=== PATIENT | female | born 1975 | race Caucasian/White ===

== ENCOUNTER 2019-04-05 09:11 | Emergency (ER) | payer OTHER ==
[2019-04-05] MEDS ORDERED: KETOROLAC 30 MG/ML INJ ONE (09:54)
--- NOTE | 2019-04-05 10:15 | RAD REPORT ---
EXAM DESCRIPTION: CT - Head Brain Wo Cont - 04/05/2019 10:03 am CLINICAL HISTORY: Headache, right ear region pain COMPARISON: None. TECHNIQUE: Axial 5 mm thick images of the head were obtained without IV contrast. All CT scans are performed using dose optimization technique as appropriate and may include automated exposure control or mA/KV adjustment according to patient size. FINDINGS: No intracranial hemorrhage, mass, edema or shift of mid-line structures. No acute infarcti on changes seen. No abnormal extra-axial fluid collections. Ventricles are slightly asymmetric as a n ormal variant. Mastoid air cells and middle ears are clear. No external auditory canal abnormality seen. Partially v isualized paranasal sinuses are clear. No acute bony findings. IMPRESSION: Negative non-contrast CT head examination.
[2019-04-05 10:37] LABS: Absolute Lymphocytes (CBC) 1.2 K/uL (0.7-4.9); Basophils % 0.4 % (0-1.3); C-Reactive Protein 3.71 mg/L (<3.00); Hematocrit 40.8 % (36.0-45.0); Lymphocytes % 16.7 % (15.3-44.8); MPV 8.6 fL (7.6-11.3); Potassium 4.3 mmol/L (3.5-5.1); RBC Red Blood Cell Count 4.35 M/uL (3.86-4.86)
[2019-04-05] MEDS ORDERED: NA CHLORIDE 0.9% 100 ML IV ONE (11:05)
[2019-04-05] MEDS ORDERED: dexAMETHasone 10 MG/ML VIAL ONE (11:05)
--- NOTE | 2019-04-05 11:29 | ER ---
Nurse's Notes [facility] Name: Kiki Marcus Age: 43 yrs Sex: Female : 1975 Arrival Date: 04/05/2019 Time: 09:14 Bed 17 [facility] MD: Diagnosis: Neuralgia and neuritis, unspecified Presentation: 04/05 09:33 Presenting complaint: Patient states: headache that started behind right ear and iw radiates across back of head, feels like a twinge of pain, intermittent lasting a few seconds at a time, started 0730 this morning. Transition of care: patient was not received from another setting of care. Onset of symptoms was April 05, 2019. Risk Assessment: Do you want to hurt yourself or someone else? Patient reports no desire to harm self or others. Initial Sepsis Screen: Does the patient meet any 2 criteria? No. Patient's initial sepsis screen is negative. Does the patient have a suspected source of infection? No. Patient's initial sepsis screen is negative. Care prior to arrival: None. 09:33 Method Of Arrival: Ambulatory iw 09:33 Acuity: FREDY 3 iw Triage Assessment: 09:35 Headache History: The patient has had previous headaches and this one is similar to bp previous episodes. General: Appears in no apparent distress. comfortable, Behavior is cooperative, appropriate for age, anxious. Pain: Complains of pain in head Pain currently is 7 out of 10 on a pain scale. Pain began gradually, Also complains of no other associated symptoms. EENT: No deficits noted. Neuro: No deficits noted. Cardiovascular: No deficits noted. Respiratory: No deficits noted. GI: No signs and/or symptoms were reported involving the gastrointestinal system. : No signs and/or symptoms were reported regarding the genitourinary system. Derm: No deficits noted. Musculoskeletal: No deficits noted. 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 - Social history:: Smoking status: Patient/guardian denies using tobacco, the patient reports quitting approximately 1 years ago. - Ebola Screening: : Patient negative for fever greater than or equal to 101.5 degrees Fahrenheit, and additional compatible Ebola Virus Disease symptoms Patient denies exposure to infectious person Patient denies travel to an Ebola-affected area in the 21 days before illness onset. Screenin:39 Abuse screen: Denies threats or abuse. Denies injuries from another. Nutritional bp screening: No deficits noted. Tuberculosis screening: No symptoms or risk factors identified. Fall Risk None identified. Assessment: 09:35 General: SEE TRIAGE NOTE. bp 09:56 Reassessment: PT TO CT. bp 10:49 Reassessment: ALL CURRENT ORDERS COMPLETED. VS STABLE. bp 11:40 Reassessment: PT D/C HOME AMBULATORY WITH FAMILY, DX WITH NEURALGIA. bp Vital Signs: 09:36 BP 125 / 84; Pulse 68; Resp 16; Temp 98.2; Pulse Ox 98% on R/A; Weight 87.09 kg; Height iw 5 ft. 3 in. (160.02 cm); Pain 8/10; 10:50 BP 127 / 82; Pulse 74; Resp 14; Pulse Ox 100% ; bp 11:41 BP 119 / 88; Pulse 70; Resp 16; Pulse Ox 96% ; bp 09:36 Body Mass Index 34.01 (87.09 kg, 160.02 cm) iw ED Course: 09:14 Patient arrived in ED. mr 09:33 Sekou Fields MD is Attending Physician. gs 09:34 Triage completed. iw 09:36 Arm band placed on. iw 09:37 Garrison Portillo, FARHEEN is Primary Nurse. bp 09:39 Patient has correct armband on for positive identification. Bed in low position. Call bp light in reach. Side rails up X2. 10:00 Inserted saline lock: 20 gauge in right antecubital area, using aseptic technique. bp Blood collected. 10:03 CT Head Brain wo Cont In Process Unspecified. EDMS 11:29 Eitan Mendoza MD is Referral Physician. gs 11:41 No provider procedures requiring assistance completed. IV discontinued, intact, bp bleeding controlled, No redness/swelling at site. Pressure dressing applied. Administered Medications: 10:00 Drug: TORadol - Ketorolac 15 mg Route: IVP; Site: right antecubital; bp 10:53 Follow up: Response: Pain is decreased bp 11:00 Drug: Decadron - Dexamethasone 10 mg Route: IVP; Site: right antecubital; bp 11:40 Follow up: Response: Pain is decreased bp Outcome: 11:29 Discharge ordered by . 11:41 Discharged to home ambulatory, with family. bp 11:41 Condition: stable 11:41 Discharge instructions given to patient, Instructed on discharge instructions, follow up and referral plans. medication usage, Demonstrated understanding of instructions, follow-up care, medications, Prescriptions given X 1. 11:42 Patient left the ED. bp Signatures: Dispatcher [employer] EDKY Vivian Lawson Irene, RN RN iw Sekou Fields MD MD gs Peltier, Brian RN RN bp
--- NOTE | 2019-04-05 11:30 | EDPHYS ---
Physician Documentation [facility] Name: Kiki Marcus Age: 43 yrs Sex: Female : 1975 Arrival Date: 04/05/2019 Time: 09:14 Bed 17 Private MD: ED Physician Sekou Fields HPI: 04/05 11:21 This 43 yrs old Female presents to ER via Ambulatory with complaints of gs Headache. 11:21 The patient complains of pain to the left occipital area and right occipital area. The gs patient describes the headache as intermittent, scalp pain. Onset: The symptoms/episode began/occurred acutely, this morning. Associated signs and symptoms: Pertinent negatives: altered mental status, paresthesias, Photophobia vomiting, weakness. Severity of symptoms: At its worst the pain was moderate, in the emergency department the pain has resolved. Headache History: Denies prior headaches. The symptoms are alleviated by nothing. the symptoms are aggravated by nothing. The patient has not experienced similar symptoms in the past. 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 - Social history:: Smoking status: Patient/guardian denies using tobacco, the patient reports quitting approximately 1 years ago. - Ebola Screening: : Patient negative for fever greater than or equal to 101.5 degrees Fahrenheit, and additional compatible Ebola Virus Disease symptoms Patient denies exposure to infectious person Patient denies travel to an Ebola-affected area in the 21 days before illness onset. ROS: 11:21 All other systems are negative. gs Exam: 11:21 Head/Face: Normocephalic, atraumatic. Eyes: Pupils equal round and reactive to light, gs extra-ocular motions intact. Lids and lashes normal. Conjunctiva and sclera are non-icteric and not injected. Cornea within normal limits. Periorbital areas with no swelling, redness, or edema. ENT: Nares patent. No nasal discharge, no septal abnormalities noted. Tympanic membranes are normal and external auditory canals are clear. Oropharynx with no redness, swelling, or masses, exudates, or evidence of obstruction, uvula midline. Mucous membranes moist. Neck: Trachea midline, no thyromegaly or masses palpated, and no cervical lymphadenopathy. Supple, full range of motion without nuchal rigidity, or vertebral point tenderness. No Meningismus. Chest/axilla: Normal chest wall appearance and motion. Nontender with no deformity. No lesions are appreciated. Cardiovascular: Regular rate and rhythm with a normal S1 and S2. No gallops, murmurs, or rubs. Normal PMI, no JVD. No pulse deficits. Respiratory: Lungs have equal breath sounds bilaterally, clear to auscultation and percussion. No rales, rhonchi or wheezes noted. No increased work of breathing, no retractions or nasal flaring. Abdomen/GI: Soft, non-tender, with normal bowel sounds. No distension or tympany. No guarding or rebound. No evidence of tenderness throughout. Back: No spinal tenderness. No costovertebral tenderness. Full range of motion. Skin: Warm, dry with normal turgor. Normal color with no rashes, no lesions, and no evidence of cellulitis. MS/ Extremity: Pulses equal, no cyanosis. Neurovascular intact. Full, normal range of motion. Neuro: Awake and alert, GCS 15, oriented to person, place, time, and situation. Cranial nerves II-XII grossly intact. Motor strength 5/5 in all extremities. Sensory grossly intact. Cerebellar exam normal. Normal gait. 11:21 Constitutional: The patient appears in no acute distress, alert, awake. Vital Signs: 09:36 BP 125 / 84; Pulse 68; Resp 16; Temp 98.2; Pulse Ox 98% on R/A; Weight 87.09 kg; Height iw 5 ft. 3 in. (160.02 cm); Pain 8/10; 10:50 BP 127 / 82; Pulse 74; Resp 14; Pulse Ox 100% ; bp 11:41 BP 119 / 88; Pulse 70; Resp 16; Pulse Ox 96% ; bp 09:36 Body Mass Index 34.01 (87.09 kg, 160.02 cm) iw MDM: 09:47 Patient medically screened. gs 11:21 Differential diagnosis: migraine, neoplasm, temporal arteritis, tension headache, gs vasomotor headache, vasculitis, neuralgia. Data reviewed: vital signs, nurses notes, lab test result(s), radiologic studies. Counseling: I had a detailed discussion with the patient and/or guardian regarding: the historical points, exam findings, and any diagnostic results supporting the discharge/admit diagnosis, the need for outpatient follow up. Response to treatment: the patient's symptoms have markedly improved after treatment, the patient's symptoms have resolved after treatment, the patient's condition has returned to base line. Physician consultation: Eitan Mendoza MD. 04/05 09:48 Order name: CRP; Complete Time: 10:44 04/05 09:48 Order name: CBC with Diff; Complete Time: 10:49 04/05 09:48 Order name: CT Head Brain wo Cont; Complete Time: 10:23 04/05 09:48 Order name: Basic Metabolic Panel; Complete Time: 10:44 04/05 10:52 Order name: ESR gs Administered Medications: 10:00 Drug: TORadol - Ketorolac 15 mg Route: IVP; Site: right antecubital; bp 10:53 Follow up: Response: Pain is decreased bp 11:00 Drug: Decadron - Dexamethasone 10 mg Route: IVP; Site: right antecubital; bp 11:40 Follow up: Response: Pain is decreased bp Disposition: 04/05/19 11:29 Discharged to Home. Impression: Neuralgia and neuritis, unspecified. - Condition is Stable. - Discharge Instructions: Neuropathic Pain. - Prescriptions for Prednisone 20 mg Oral Tablet - take 1 tablet by ORAL route once daily for 5 days; 5 tablet. - Medication Reconciliation Form, Thank You Letter, Antibiotic Education, Prescription Opioid Use, Work release form form. - Follow up: Eitan Mendoza MD; When: 1 - 2 days; Reason: Re-evaluation by your physician. Signatures: Dispatcher [employer] Ysabel Fortune RN RN Sekou Fields MD MD gs Peltier, Brian RN RN bp Corrections: (The following items were deleted from the chart) 11:42 11:29 04/05/2019 11:29 Discharged to Home. Impression: Neuralgia and neuritis, bp unspecified. Condition is Stable. Forms are Medication Reconciliation Form, Thank You Letter, Antibiotic Education, Prescription Opioid Use. Follow up: Eitan Mendoza; When: 1 - 2 days; Reason: Re-evaluation by your physician. gs
[2019-04-05 12:14] VITALS: TEMP 98.2
[2019-04-05 12:16] VITALS: BP 119/88; O2SAT 96
== END 2019-04-05 11:42 | disposition home or self-care (01) ==
LOC: ER 09:11
DX: M79.2 Neuralgia and neuritis, unspecified (principal)
CPT/HCPCS: 85025; 80048; 36415; 85652; 86140; 70450; 96375; 96374; 99284; J1100